=== PATIENT | male | born 1960 | race Two or more races ===

== ENCOUNTER 2018-08-21 21:58 | Emergency (ER) | payer BC ==
[~2018-08-21] VITALS: Ht 175.3 cm; Wt 99.8 kg
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
--- NOTE | 2018-08-21 22:47 | NUR ---
PT RESTING COMFORTABLY, VSS. NO COMPLAINTS AT THIS TIME. WILL CONT TO MONITOR.
[2018-08-21 22:48] LABS: BASOPHILS # (AUTO) 0.1 /CMM (0.0-0.2); BASOPHILS % (AUTO) 1.1 % (0.0-2.0); EOSINOPHILS % (AUTO) 0.7 % (0.0-6.0); HEMATOCRIT 39 % (39-51); HEMOGLOBIN 13.1 g/dL (13.5-17.5); LYMPHOCYTES # (AUTO) 2.4 /CMM (0.8-4.8); LYMPHOCYTES % (AUTO) 37.5 % (20.0-44.0); MEAN CORPUSCULAR HGB CONC 33 g/dl (31.0-36.0); MEAN CORPUSCULAR VOLUME 78 fL (80-96); MONOCYTES # (AUTO) 0.4 /CMM (0.1-1.30); MONOCYTES % (AUTO) 6.8 % (2.0-12.0); NEUTROPHILS # (AUTO) 3.4 /CMM (1.8-8.9); NEUTROPHILS % (AUTO) 53.9 % (43.0-81.0); PLATELET COUNT (AUTO) 172 /CMM (150-450); RED BLOOD CELL COUNT(AUTO) 5.03 MIL/uL (4.5-6.0); WHITE BLOOD COUNT (AUTO) 6.4 K/uL (4.3-11.0)
[2018-08-21 23:02] VITALS: BP 131/78
[2018-08-21 23:03] LABS: CARBON DIOXIDE 24 mmol/L (21-32); CHLORIDE 103 mmol/L (98-107); GLUCOSE 117 mg/dL (74-106); POTASSIUM 3.7 mmol/L (3.5-5.1); SODIUM SERUM 139 mmol/L (136-145); UREA NITROGEN, BLOOD 15 mg/dL (7-18)
[2018-08-21 23:12] LABS: B-TYPE NATRIURETIC PEPTIDE 163 PG/ML (0-125)
--- NOTE | 2018-08-21 23:20 | NUR ---
Patient does not wish to proceed with medical care recommended by Dr. BOWLING. Patient given information related to possible complications, up to and including , which could occur as a result of leaving the hospital at this time. Patient verbalizes understanding of risks involved due to leaving against medical advice. Patient has signed AMA form.
--- NOTE | 2018-08-21 23:22 | NUR ---
IV removed. Catheter intact and site benign. Pressure and 4x4 applied to site. No bleeding noted.
== END 2018-08-21 23:20 | disposition left against medical advice (07) ==
LOC: ER 22:01
DX: I20.9 Angina pectoris, unspecified (principal)
CPT/HCPCS: 36415; 71045-TC; 80048-TC; 83880; 84484-TC; 85025-TC; 85730-TC